=== PATIENT | male | born 1990 | race Caucasian/White ===

== ENCOUNTER 2018-12-05 19:38 | Emergency (ER) | payer OTHER ==
[~2018-12-05] VITALS: Ht 170.2 cm; Wt 95.3 kg
[2018-12-05 19:43] VITALS: BP 120/64
[2018-12-05 20:15] VITALS: BP 120/64
--- NOTE | 2018-12-05 20:15 | NUR ---
PATIENT BIB [place] [employer]. PATIENT EXAMINED BY DR. CHAVARRIA. PATIENT MEDICALLY CLEARED AND RELEASED IN CUSTODY IN STABLE CONDITION. ORIGINAL PRE-BOOK FORM GIVEN TO OFFICER [id number].
== END 2018-12-05 20:15 ==
LOC: MED 19:38
DX: F10.10 Alcohol abuse, uncomplicated (principal); Y90.9 Presence of alcohol in blood, level not specified; F31.9 Bipolar disorder, unspecified
CPT/HCPCS: 99283

== ENCOUNTER 2022-03-21 01:20 | Emergency (ER) | payer OTHER ==
[~2022-03-21] VITALS: Ht 170.2 cm; Wt 71.2 kg
[2022-03-21 01:32] VITALS: BP 126/90
--- NOTE | 2022-03-21 01:36 | NUR ---
PT JOSE JUAN. TAKEN TO CHAIR
--- NOTE | 2022-03-21 01:36 | NUR ---
31 y/o male biba for meth use. pt states he does not want to be seen. a/ox4, unlabored breathing, ambulatory, and calm demeanor.
--- NOTE | 2022-03-21 01:37 | NUR ---
Dr. Weaver examining patient.
[2022-03-21] MEDS ORDERED: NACL 0.9% 1,000 ML IV ONE (01:45)
[2022-03-21] MEDS ORDERED: LORazepam 1 MG TAB PO ONE (01:45)
--- NOTE | 2022-03-21 02:32 | NUR ---
Dr Weaver examining pt
--- NOTE | 2022-03-21 02:35 | NUR ---
REVOMED IV FROM PT'S LEFT AC. PLACED BY ALS.
[2022-03-21 02:37] VITALS: BP 124/85
--- NOTE | 2022-03-21 02:37 | NUR ---
Patient does not wish to proceed with medical care recommended by Dr Weaver. Patient given information related to possible complications, up to and including , which could occur as a result of leaving hospital at this time. Patient verbalizes understanding of risks involved leaving against medical advice. Patient has signed AMA form. VSS, A/OX4, UNLABORED BREATHING, AMBULATORY, AND CALM DEMEANOR.
--- NOTE | 2022-03-21 02:39 | NUR ---
pt left without discharge paperwork.
== END 2022-03-21 02:37 | disposition left against medical advice (07) ==
LOC: MED 01:20
DX: F15.10 Other stimulant abuse, uncomplicated (principal); F41.9 Anxiety disorder, unspecified; R00.0 Tachycardia, unspecified; F20.9 Schizophrenia, unspecified; F17.200 Nicotine dependence, unspecified, uncomplicated; F32.9 Major depressive disorder, single episode, unspecified
CPT/HCPCS: 99283

== ENCOUNTER 2022-06-24 22:27 | Observation (INO) | payer OTHER ==
[~2022-06-24] VITALS: Ht 170.2 cm; Wt 77.1 kg
--- NOTE | 2022-06-24 22:30 | NUR ---
PT [facility] ER BED 7
[2022-06-24 22:40] VITALS: BP 117/84
[2022-06-24] MEDS ORDERED: LORazepam 2 MG/ML VIAL IVP ONE (22:40)
[2022-06-24] MEDS ORDERED: NACL 0.9% 2,000 ML IV ONE (22:40)
--- NOTE | 2022-06-24 22:45 | NUR ---
PATIENT BIBA; IMMEDIATELY PLACED PATIENT ON MONITOR. REPORT RECEIVED FROM EMT'S, PATIENT TOOK BUPROPION, AND USED METH PATIENT IS EXTREMELY ANXIOUS. GAVINO CONTINUE TO MONITOR
[2022-06-24 22:59] LABS: BASOPHILS % (AUTO) 0.5 % (0.0-2.0); EOSINOPHILS # (AUTO) 0.2 K/uL (0-0.4); EOSINOPHILS % (AUTO) 2.2 % (0.0-4.0); HEMATOCRIT 44.7 % (36-52); HEMOGLOBIN 15.3 g/dL (12.0-18.0); LYMPHOCYTES % (AUTO) 48.5 % (20.5-51.1); MEAN CORPUSCULAR HEMOGLOBIN 30 pg (27-31); MEAN CORPUSCULAR HGB CONC 34 g/dL (33-37); MEAN CORPUSCULAR VOLUME 87.9 fL (80-94); MONOCYTES # (AUTO) 0.8 K/uL (0.8-1.0); MONOCYTES % (AUTO) 10.1 % (1.7-9.3); NEUTROPHILS # (AUTO) 3.2 K/uL (1.8-7.7); NEUTROPHILS % (AUTO) 38.7 % (42.2-75.2); PLATELET COUNT (AUTO) 261 K/uL (140-450); RED BLOOD CELL COUNT(AUTO) 5.08 MIL/uL (4.20-6.10); WHITE BLOOD COUNT (AUTO) 8.3 K/uL (4.8-10.8)
--- NOTE | 2022-06-24 23:08 | NUR ---
CALLED POISON CONTROL AND SPOKE WITH REGARDING PATIENT AND WAS PROVIDED WITH THE FOLLOWING ORDERS: *PLACE PATIENT ON DIRECT SERVICE PROFESSIONAL *PERFORM EKG ON PATIENT *OBTAIN URINE DRUG SCREEN *QRS > 200; ADMINISTER BOLUS OF SODIUM BICARB *QTS > 500; ADMINISTER MG *ADMINISTER BENZODIAPINES FOR AGITATION/ANXIETY *MAINTAIN HIGH NORMAL LEVELS OF THE FOLLOWING ELECTROLYTES: -K+ -MG -PHOSPHATE DR. REESE NOTIFIED ABOUT POISON CONTROL RECOMMENDATIONS
--- NOTE | 2022-06-24 23:21 | NUR ---
DR REESE given copy of EKG for review.
[2022-06-24 23:26] LABS: ANION GAP 25.1 (8-16); ASPARTATE AMINOTRANSFERASE 13 U/L (15-37); CARBON DIOXIDE 16.3 mmol/L (21-32); CHLORIDE 99 mmol/L (98-107); CREATININE 1.2 mg/dL (0.6-1.3); GFR ARICAN-AMERICAN 90 mL/min (>90); GLUCOSE 95 mg/dL (74-106); POTASSIUM 3.4 mmol/L (3.5-5.1); SODIUM SERUM 137 mmol/L (136-145); TOTAL BILIRUBIN 0.4 mg/dL (0.0-1.0); UREA NITROGEN, BLOOD 14 mg/dL (7-18)
[2022-06-24] MEDS ORDERED: LORazepam 2 MG/ML VIAL ONE (23:53)
[2022-06-25] MEDS ORDERED: LORazepam 2 MG/ML VIAL IVP ONE (00:20)
--- NOTE | 2022-06-25 00:46 | NUR ---
Covid swab done and sent to lab.
[2022-06-25 01:04] LABS: BARBITURATE, URINE NEGATIVE ng/ml (NEG <=200); BENZODIAZEPINE, URINE NEGATIVE ng/mL (NEG <=200); CANNABINOID, URINE POSITIVE ng/mL (NEG <=50); COCAINE, URINE NEGATIVE ng/mL (NEG <=300); OPIATE, URINE NEGATIVE ng/mL (NEG <=2000); PHENCYCLIDINE SCREEN,URINE NEGATIVE ng/mL (NEG <=25)
--- NOTE | 2022-06-25 02:51 | NUR ---
Patient appears to be resting comfortably in bed. Vital Signs within normal limits. Respirations even and unlabored.
[2022-06-25] MEDS ORDERED: ZOLPIDEM 10 MG TAB PO PRN (07:15)
[2022-06-25] MEDS ORDERED: LORazepam 2 MG/ML VIAL IVP PRN (07:15)
[2022-06-25] MEDS ORDERED: ONDANSETRON 4 MG/2 ML VIAL IVP PRN (07:15)
[2022-06-25] MEDS ORDERED: POTASSIUM CHLORIDE 10 MEQ TABER PO PRN (07:15)
[2022-06-25] MEDS ORDERED: DOCUSATE SODIUM 100 MG GELCAP PO PRN (07:15)
[2022-06-25] MEDS ORDERED: MORPHINE SULFATE 2 MG/ML SYR IVP PRN (07:15)
[2022-06-25] MEDS ORDERED: MAG SULF 2000 MG/WATER PREMIX 50 ML IV PRN (07:15)
[2022-06-25] MEDS ORDERED: ACETAMINOPHEN 325 MG TAB PO PRN (07:15)
--- NOTE | 2022-06-25 07:20 | NUR ---
Report recieved from [facility] for transfer of care.
--- NOTE | 2022-06-25 07:28 | NUR ---
Pt report given to [facility]. Transfer of care at this time.
--- NOTE | 2022-06-25 07:45 | NUR ---
Dr. Ellison, admiting doctor, evaluating patient at bedside.
[2022-06-25 08:00] VITALS: BP 114/75
--- NOTE | 2022-06-25 08:10 | NUR ---
Patient was offered his breakfast tray.
--- NOTE | 2022-06-25 08:59 | NUR ---
Yoshi reid in ED - 06/25/22 at 0859 by [facility] tamiko from poison control called for update. poison control requested for repeat ekg
--- NOTE | 2022-06-25 08:59 | NUR ---
tamiko from poison control called for update. poison control requested for repeat ekg, tylenol and aspirin levels, with electrolyte monitoring.
--- NOTE | 2022-06-25 10:51 | NUR ---
Patient left AMA with out signing paperwork. Dr. Ellison made aware.
--- NOTE | 2022-06-25 10:52 | NUR ---
The patient's care was reviewed and supervised by Nia Haile, RN, RN. Pt requesting to leave ama at this time, md caicedo made aware. pt self removed iv at this time and walked out refusing to sign ama.
[2022-06-25 11:15] LABS: CARBON DIOXIDE 24.8 mmol/L (21-32); CREATININE 0.8 mg/dL (0.6-1.3); POTASSIUM 3.8 mmol/L (3.5-5.1)
== END 2022-06-25 10:52 | disposition left against medical advice (07) ==
LOC: MED 22:27 → MTU 06-25 04:16
PROVIDERS: ADMIT Family Medicine; ATTEND Family Medicine
DX: T40.491A Poisoning by other synthetic narcotics, accidental (unintentional), initial encounter (principal); Z20.822 Contact with and (suspected) exposure to COVID-19; E87.6 Hypokalemia; F41.8 Other specified anxiety disorders; F17.210 Nicotine dependence, cigarettes, uncomplicated; F19.10 Other psychoactive substance abuse, uncomplicated; Z79.899 Other long term (current) drug therapy
CPT/HCPCS: 36415; 80048; 80053; 80305; 82550; 83735; 84484; 85025; 87426; 93005; 96374; 96376; 99291; G0378; J2060

== ENCOUNTER 2023-04-23 20:36 | Emergency (ER) | payer OTHER ==
[~2023-04-23] VITALS: Ht 170.2 cm; Wt 73.9 kg
[2023-04-23 20:36] VITALS: BP 126/81; PULSE 102; RESP 17; TEMP 98; O2SAT 97
[2023-04-23 21:57] LABS: BASOPHILS # (AUTO) 0.1 K/uL (0.00-0.22); EOSINOPHILS # (AUTO) 0.2 K/uL (0-0.4); EOSINOPHILS % (AUTO) 1.3 % (0.0-4.0); HEMATOCRIT 41.9 % (36-52); HEMOGLOBIN 14.1 g/dL (12.0-18.0); LYMPHOCYTES # (AUTO) 2.7 K/uL (2.0-11.5); LYMPHOCYTES % (AUTO) 22.2 % (20.5-51.1); MEAN CORPUSCULAR HEMOGLOBIN 30 pg (27-31); MEAN CORPUSCULAR HGB CONC 34 g/dL (33-37); MEAN CORPUSCULAR VOLUME 88.5 fL (80-94); MONOCYTES # (AUTO) 1.5 K/uL (0.8-1.0); MONOCYTES % (AUTO) 12.1 % (1.7-9.3); NEUTROPHILS # (AUTO) 7.8 K/uL (1.8-7.7); NEUTROPHILS % (AUTO) 63.4 % (42.2-75.2); PLATELET COUNT (AUTO) 264 K/uL (140-450); RED BLOOD CELL COUNT(AUTO) 4.74 MIL/uL (4.20-6.10); RED CELL DISTRIBUTION WIDTH 15.4 % (11.6-13.7); WHITE BLOOD COUNT (AUTO) 12.3 K/uL (4.8-10.8)
[2023-04-23 22:05] LABS: AMPHETAMINE, URINE POSITIVE ng/ml (NEG <=1000); BARBITURATE, URINE NEGATIVE ng/ml (NEG <=200); BENZODIAZEPINE, URINE NEGATIVE ng/mL (NEG <=200); COCAINE, URINE NEGATIVE ng/mL (NEG <=300)
[2023-04-23 22:06] LABS: CANNABINOID, URINE POSITIVE ng/mL (NEG <=50); OPIATE, URINE NEGATIVE ng/mL (NEG <=2000); PHENCYCLIDINE SCREEN,URINE NEGATIVE ng/mL (NEG <=25)
[2023-04-23 22:13] LABS: ACETAMINOPHEN < 0.5 ug/ml (10-30); ALANINE AMINOTRANSFERASE 19 U/L (12-78); ALBUMIN 3.9 g/dL (3.4-5.0); ALCOHOL, BLOOD < 3 mg/dL (<10); ALKALINE PHOSPHATASE 84 U/L (50-136); ANION GAP 21.6 (8-16); ASPARTATE AMINOTRANSFERASE 27 U/L (15-37); CALCIUM 8.9 mg/dL (8.5-10.1); CARBON DIOXIDE 20.6 mmol/L (21-32); CHLORIDE 96 mmol/L (98-107); CREATINE KINASE, TOTAL 315 U/L (39-308); GFR ARICAN-AMERICAN 111 mL/min (>90); GFR NON ARICAN-AMERICAN 91 mL/min (>90); GLUCOSE 73 mg/dL (74-106); POTASSIUM 3.2 mmol/L (3.5-5.1); SALICYLATE < 2.8 mg/dL (2.8-20.0); SODIUM SERUM 135 mmol/L (136-145); TOTAL BILIRUBIN 1.4 mg/dL (0.0-1.0); TOTAL PROTEIN, SERUM 7.9 g/dL (6.4-8.2); UREA NITROGEN, BLOOD 18 mg/dL (7-18)
[2023-04-23 23:05] VITALS: BP 98/59; PULSE 92; RESP 18; O2SAT 97
== END 2023-04-24 02:21 | disposition home or self-care (01) ==
LOC: MED 20:36
DX: F15.10 Other stimulant abuse, uncomplicated (principal); F12.10 Cannabis abuse, uncomplicated; F39 Unspecified mood [affective] disorder; F20.9 Schizophrenia, unspecified; F31.9 Bipolar disorder, unspecified
CPT/HCPCS: 36415; 80053; 80305; 82550; 82553; 85025; 99283; G0480; G0482